=== PATIENT | female | born 2000 | race Caucasian/White ===

== ENCOUNTER 2019-01-07 10:19 | Emergency (ER) | payer MEDICAID, SELFPAY ==
[2019-01-07 10:26] VITALS: BP 149/91; PULSE 76; RESP 14; TEMP 36.7
--- NOTE | 2019-01-07 10:50 | W.ED.GENAD ---
Discharge Plan Disposition Patient Disposition: HOME Condition: Stable Discharge Details Chief Complaint: RashLesion Clinical Impression: Encounter for evaluation of wound Primary Care Provider: Valerie Moncada ED Provider: Shahab Fitch Home Meds and New Rx's Prescriptions: Continued fluticasone propion-salmeterol [Advair Diskus] 250-50 mcg/dose Blister With Device 1 inh INHALATION BID RF: 0 spironolactone 25 mg Tablet 25 mg PO DAILY RF: 0 albuterol sulfate [ProAir HFA] 90 mcg/actuation Hfa Aerosol Inhaler 2 puff INHALATION Q6H PRNRF: 0 cholecalciferol (vitamin D3) [Vitamin D3] 1,000 unit Tablet 1,000 unit PO DAILY RF: 0 Discharge Instructions Instructions: Acute Wound Care (ED) Additional Instructions: Continue to use your topical antibiotic and you may take [id number] ibuprofen 600 mg every 6 hours as needed for pain control. Please return immediately if you notice any redness surrounding the wound, odorous drainage, significant change of your symptoms otherwise follow-up with dermatology for reassessment as needed. Referrals: Valerie Moncada [Primary Care Provider] - (Or elementary supervisor for reassessment as needed) Medical Decision Making Patient presenting to the emergency department for chief complaint of nonhealing wound. Patient states 1 week ago she had a mole removed by dermatology at [facility] and has had continued stinging, burning and itching sensation surrounding the wound with red and raised borders. Evaluation of the wound shows red raised borders of the wound but no odorous or foul drainage, no surrounding erythema, no induration, no obvious signs of cellulitis or wound infection. There are some very small papules that may be a slight dermatitis to adhesive tape so patient was encouraged to use paper tape and also allow the wound to air dry. Patient was informed that she should continue to use the topical antibiotic as prescribed by elementary supervisor but otherwise I do not feel that she needs systemic medication at this time. Clear instructions were given to patient to watch for any emergent changes that would suggest need of different antibiotic and to otherwise follow-up with dermatology or primary care for reassessment or return to ED for worsening of symptoms. After discussion of diagnosis and plan of care patient has no further needs, questions, or concerns and states clear understanding to return to the emergency department for any worsening symptoms. HPI General Mode of arrival: ambulatory. Date/Time Provider Initiated Documentation: 01/07/19 10:50. Limitations to Documentation: no limitations. Information obtained by: patient and RN notes reviewed. History of Present Illness 18 year old F presents to the emergency department with the chief complaint of skin infection ?, described as moderate, with intensity rated at 7. Quality is described as burning (and itching), and is localized to the chest (left lateral chest wall). Patient started experiencing this week(s) (1) and it has been constant. No relieving factors improve symptom(s), Patient did receive the following treatments prior to arrival, other (topical abx) Related Data Home Medications Medication Instructions Recorded Confirmed albuterol sulfate [ProAir HFA] 2 puff INHALATION Q6H PRN 01/07/19 01/07/19 cholecalciferol (vitamin D3) 1,000 unit PO DAILY 01/07/19 01/07/19 [Vitamin D3] fluticasone propion-salmeterol 1 inh INHALATION BID 01/07/19 01/07/19 [Advair Diskus] spironolactone 25 mg PO DAILY 01/07/19 01/07/19 Allergies Allergy/AdvReac Type Severity Reaction Status Date / Time Latex, Natural Rubber Allergy Unverified 01/07/19 10:30 topiramate [From Topamax] Allergy Unverified 01/07/19 10:30 General Stated Complaint: RashLesion VICKI: 3 Review of Systems Constitutional Denies body ache(s), Reports chills and Reports fever(s) Gastrointestinal Denies nausea and Denies vomiting Integumentary/Breasts Reports as per HPI [facility] Social History Smoking/Tobacco Use Status: Never Alcohol Intake: never Drug use: Never Substance use type: does not use Do you feel safe at home: Yes Do you feel safe in your relationship?: Yes Exam Const General: cooperative, no acute distress and not ill appearing Orientation: alert, awake and oriented x3 HENMT Mouth: moist mucous membranes Resp Effort & Inspection: normal respiratory effort, able to speak in complete sentences and no respiratory distress Cardio Rhythm: regular rhythm Skin Wounds: wounds noted (7mm circular wound from mole excision reddened wound borders) Neuro General: alert, awake and oriented x3 Course Vital Signs Temperature 36.7 C 04/17/19 10:26 Pulse 76 01/07/19 10:26 Respiratory Rate 14 01/07/19 10:26 Blood Pressure 149/91 H 01/07/19 10:26 Temperature 36.7 C 01/07/19 10:26 Temperature Source Temporal Artery Scan 01/07/19 10:26 Pulse 76 01/07/19 10:26 Respiratory Rate 14 01/07/19 10:26 Respiratory Effort Non-Labored 01/07/19 10:31 Blood Pressure 149/91 H 01/07/19 10:26 Blood Pressure Position Sitting 01/07/19 10:26 Oxygen Delivery Method Room Air 01/07/19 10:26 Oxygen Flow Rate 0 01/07/19 10:26 Pain Level 8 01/07/19 10:26
--- NOTE | 2019-01-07 10:55 | ED.GENADUL_ITS ---
Discharge Plan Disposition Patient Disposition: HOME Condition: Stable Discharge Details Chief Complaint: RashLesion Clinical Impression: Encounter for evaluation of wound Primary Care Provider: Valerie Moncada ED Provider: Shahab Fitch Home Meds and New Rx's Prescriptions: Continued fluticasone propion-salmeterol [Advair Diskus] 250-50 mcg/dose Blister With Device 1 inh INHALATION BID RF: 0 spironolactone 25 mg Tablet 25 mg PO DAILY RF: 0 albuterol sulfate [ProAir HFA] 90 mcg/actuation Hfa Aerosol Inhaler 2 puff INHALATION Q6H PRNRF: 0 cholecalciferol (vitamin D3) [Vitamin D3] 1,000 unit Tablet 1,000 unit PO DAILY RF: 0 Discharge Instructions Instructions: Acute Wound Care (ED) Additional Instructions: Continue to use your topical antibiotic and you may take [id number] ibuprofen 600 mg every 6 hours as needed for pain control. Please return immediately if you notice any redness surrounding the wound, odorous drainage, significant change of your symptoms otherwise follow-up with dermatology for reassessment as needed. Referrals: Valerie Moncada [Primary Care Provider] - (Or block cuber for reassessment as needed) Medical Decision Making Patient presenting to the emergency department for chief complaint of nonhealing wound. Patient states 1 week ago she had a mole removed by dermatology at [facility] and has had continued stinging, burning and itching sensation surrounding the wound with red and raised borders. Evaluation of the wound shows red raised borders of the wound but no odorous or foul drainage, no surrounding erythema, no induration, no obvious signs of cellulitis or wound infection. There are some very small papules that may be a slight dermatitis to adhesive tape so patient was encouraged to use paper tape and also allow the wound to air dry. Patient was informed that she should continue to use the topical antibiotic as prescribed by block cuber but otherwise I do not feel that she needs systemic medication at this time. Clear instructions were given to patient to watch for any emergent changes that would suggest need of different antibiotic and to otherwise follow-up with dermatology or primary care for reassessment or return to ED for worsening of symptoms. After discussion of diagnosis and plan of care patient has no further needs, questions, or concerns and states clear understanding to return to the emergency department for any worsening symptoms. HPI General Mode of arrival: ambulatory . Date/Time Provider Initiated Documentation: 01/07/19 10:50 . Limitations to Documentation: no limitations . Information obtained by: patient and RN notes reviewed . History of Present Illness 18 year old F presents to the emergency department with the chief complaint of skin infection ?, described as moderate, with intensity rated at 7. Quality is described as burning (and itching), and is localized to the chest (left lateral chest wall). Patient started experiencing this week(s) (1) and it has been constant. No relieving factors improve symptom(s), Patient did receive the following treatments prior to arrival, other (topical abx) Related Data Home Medications Medication Instructions Recorded Confirmed albuterol sulfate [ProAir HFA] 2 puff INHALATION Q6H PRN 01/07/19 01/07/19 cholecalciferol (vitamin D3) 1,000 unit PO DAILY 01/07/19 01/07/19 [Vitamin D3] fluticasone propion-salmeterol 1 inh INHALATION BID 01/07/19 01/07/19 [Advair Diskus] spironolactone 25 mg PO DAILY 01/07/19 01/07/19 Allergies Allergy/AdvReac Type Severity Reaction Status Date / Time Latex, Natural Rubber Allergy Unverified 01/07/19 10:30 topiramate [From Topamax] Allergy Unverified 01/07/19 10:30 General Stated Complaint: RashLesion VICKI: 3 Review of Systems Constitutional Denies body ache(s), Reports chills and Reports fever(s) Gastrointestinal Denies nausea and Denies vomiting Integumentary/Breasts Reports as per HPI [facility] Social History Smoking/Tobacco Use Status: Never Alcohol Intake: never Drug use: Never Substance use type: does not use Do you feel safe at home: Yes Do you feel safe in your relationship?: Yes Exam Const General: cooperative, no acute distress and not ill appearing Orientation: alert, awake and oriented x3 HENMT Mouth: moist mucous membranes Resp Effort & Inspection: normal respiratory effort, able to speak in complete sentences and no respiratory distress Cardio Rhythm: regular rhythm Skin Wounds: wounds noted (7mm circular wound from mole excision reddened wound borders) Neuro General: alert, awake and oriented x3 Course Vital Signs Temperature 36.7 C 04/17/19 10:26 Pulse 76 01/07/19 10:26 Respiratory Rate 14 01/07/19 10:26 Blood Pressure 149/91 H 01/07/19 10:26 Temperature 36.7 C 01/07/19 10:26 Temperature Source Temporal Artery Scan 01/07/19 10:26 Pulse 76 01/07/19 10:26 Respiratory Rate 14 01/07/19 10:26 Respiratory Effort Non-Labored 01/07/19 10:31 Blood Pressure 149/91 H 01/07/19 10:26 Blood Pressure Position Sitting 01/07/19 10:26 Oxygen Delivery Method Room Air 01/07/19 10:26 Oxygen Flow Rate 0 01/07/19 10:26 Pain Level 8 01/07/19 10:26
[2019-01-07] MEDS: Ibuprofen 600 MG TAB PO (11:02)
[2019-01-07 19:02] VITALS: BP 149/91; PULSE 76; RESP 14; TEMP 36.7
== END 2019-01-07 11:05 | disposition home or self-care (01) ==
PROVIDERS: Emergency Provider Nurse Practitioner Family; PCP Nurse Practitioner
DX: L30.9 Dermatitis, unspecified (principal)
CPT/HCPCS: 99282

== ENCOUNTER 2020-05-29 18:55 | Emergency (ER) | payer MEDICAID, SELFPAY ==
--- NOTE | 2020-05-29 19:00 | DI.RAD_ITS ---
EXAM: XR HAND RT COMPLETE CLINICAL HISTORY: trauma. TECHNIQUE: 2D digital imaging was performed. COMPARISON: No exams were available for comparison FINDINGS: BONES: No acute fracture is present. No bony destructive lesion is seen. JOINTS: No dislocation present. SOFT TISSUE: Normal. IMPRESSION: Unremarkable radiographs of the right hand. DATA REPOSITORY: RADIATION DOSE DELIVERED:
[2020-05-29 19:02] VITALS: BP 148/95; PULSE 76; RESP 16; TEMP 36.6; O2SAT 96
--- NOTE | 2020-05-29 19:42 | ED.GENADUL_ITS ---
Discharge Plan Disposition Patient Disposition: HOME Condition: Stable Discharge Details Clinical Impression: Contusion of hand Primary Care Provider: Valerie Moncada ED Provider: Elham Calero Home Meds and New Rx's Prescriptions: Continued fluticasone propion-salmeterol [Advair Diskus] 250-50 mcg/dose Blister With Device 1 inh INHALATION BID RF: 0 spironolactone 25 mg Tablet 25 mg PO DAILY RF: 0 albuterol sulfate [ProAir HFA] 90 mcg/actuation Hfa Aerosol Inhaler 2 puff INHALATION Q6H PRNRF: 0 cholecalciferol (vitamin D3) [Vitamin D3] 1,000 unit Tablet 1,000 unit PO DAILY RF: 0 Discharge Instructions Instructions: Contusion in Adults (ED) Additional Instructions: Rest, ice, and elevate the affected area as much as possible. Alternate tylenol and motrin as needed and directed for pain. Follow up with your primary care doctor in 1 week as needed. Return to the emergency department with any worsening or new concerning symptoms. Discharge Data Discharge Date/Time-TO BE ENTERED AT DEPARTURE: 05/29/20 21:15 Discharge Physician: Elham Calero Medical Decision Making <Richard Berumen MD - Last Filed: 06/18/20 20:56> 19yo f here with injury to right 2nd and 3rd distal MCs and MCP. Distal motor and sensation intact. Xray of the right hand to assess for fracture. <Elham Calero DO - Last Filed: 05/29/20 20:59> 1999 --please see Dr. Richard Berumen's note for initial presentation, exam and plan. Case endorsed to follow-up on hand x-ray. And x-ray reviewed and negative. Patient given Shyam wrap for comfort and compression. Advised on the importance of RICE. Advised to follow up with the primary care doctor for re-evaluation. Usual and customary return precautions given prior to discharge. Medical Records Medical records reviewed: Yes I reviewed the patient's medical records. Imaging Data Radiologic Study: Radiologist's impression: XR Right Hand Exam date and time: 05/29/2020 7:54 PM Age: 19 years old Clinical indication: Injury or trauma; Injury history: Crushed hand in door. ; Initial encounter; Abrasion; Right thumb and right index finger and right middle finger and right ring finger and right little finger; Injury date: 05/29/2020 TECHNIQUE: Imaging protocol: XR Right hand. Views: 3 or more views. COMPARISON: No relevant prior studies available. FINDINGS: Bones/joints: Unremarkable. Soft tissues: Unremarkable. IMPRESSION: No evidence for acute bony injury. If clinical symptoms persist recommend followup film in 7-10 days. HPI <Richard Berumen MD - Last Filed: 06/18/20 20:56> General Mode of arrival: ambulatory . Date/Time Provider Initiated Documentation: 05/29/20 19:11 . Limitations to Documentation: no limitations . Information obtained by: patient . HPI Narrative: 19-year-old female presents with chief complaint of right hand pain. Patient notes she accidentally slammed her right hand in car door around 3 PM today. She is had pain since the accident. Pain is localized to her right second and third MCPs. No associated tingling or numbness. No wrist pain. Patient did not sustain laceration. Pain is worse on palpation. Related Data Home Medications Medication Instructions Recorded Confirmed albuterol sulfate [ProAir HFA] 2 puff INHALATION Q6H PRN 01/07/19 05/29/20 cholecalciferol (vitamin D3) 1,000 unit PO DAILY 01/07/19 05/29/20 [Vitamin D3] fluticasone propion-salmeterol 1 inh INHALATION BID 01/07/19 05/29/20 [Advair Diskus] spironolactone 25 mg PO DAILY 01/07/19 01/07/19 Allergies Allergy/AdvReac Type Severity Reaction Status Date / Time Latex, Natural Rubber Allergy Unverified 05/29/20 19:06 topiramate [From Topamax] Allergy Unverified 05/29/20 19:06 General Stated Complaint: Orthopedic VICKI: 4 Review of Systems <Richard Berumen MD - Last Filed: 06/18/20 20:56> Musculoskeletal Musculoskeletal: Reports as per HPI Integumentary/Breasts Skin/Breast: Reports as per HPI Neurologic Neurologic: Reports as per HPI PFSH <Richard Berumen MD - Last Filed: 06/18/20 20:56> Social History Smoking/Tobacco Use Status: Never Alcohol Intake: never Drug use: Never Substance use type: does not use Do you feel safe at home: Yes Do you feel safe in your relationship?: Yes Exam <Richard Berumen MD - Last Filed: 06/18/20 20:56> Const General: cooperative and healthy appearing Neuro Other: Distal motor and sensation intact all digits right hand Extrem Right upper extremity: wrist Details: no tenderness and hand Details: tenderness Location: of the 2nd digit Location: at the MCP joint and of the 3rd digit Location: at the MCP joint; no lacerations Course <Richard Berumen MD - Last Filed: 06/18/20 20:56> Vital Signs Vital signs: Vital Signs Temperature 36.6 C 05/29/20 19:02 Pulse 76 05/29/20 19:02 Respiratory Rate 16 05/29/20 19:02 Blood Pressure 148/95 H 05/29/20 19:02 Pulse Oximetry 96 05/29/20 19:02 Temperature 36.6 C 05/29/20 19:02 Temperature Source Tympanic 05/29/20 19:02 Pulse 76 05/29/20 19:02 Respiratory Rate 16 05/29/20 19:02 Respiratory Effort Non-Labored 05/29/20 19:04 Blood Pressure 148/95 H 05/29/20 19:02 Blood Pressure Position Sitting 05/29/20 19:02 Pulse Oximetry 96 05/29/20 19:02 Oxygen Delivery Method Room Air 05/29/20 19:02 Oxygen Flow Rate 0 05/29/20 19:02 Pain Level 9 05/29/20 19:04
[2020-05-29] MEDS: Acetaminophen 325 MG TAB 650 MG PO (19:50)
--- NOTE | 2020-05-29 20:19 | DI.VRAD_ITS ---
PROCEDURE INFORMATION: Exam: XR Right Hand Exam date and time: 05/29/2020 7:54 PM Age: 19 years old Clinical indication: Injury or trauma; Injury history: Crushed hand in door. ; Initial encounter; Abrasion; Right thumb and right index finger and right middle finger and right ring finger and right little finger; Injury date: 05/29/2020 TECHNIQUE: Imaging protocol: XR Right hand. Views: 3 or more views. COMPARISON: No relevant prior studies available. FINDINGS: Bones/joints: Unremarkable. Soft tissues: Unremarkable. IMPRESSION: No evidence for acute bony injury. If clinical symptoms persist recommend followup film in 7-10 days. Dictated and Authenticated by: Allie Zaragoza MD. Ordering:BETSY Ramos MD
[2020-05-29 21:15] VITALS: BP 148/95; PULSE 76; RESP 16; TEMP 36.6; O2SAT 96
== END 2020-05-29 21:15 | disposition home or self-care (01) ==
PROVIDERS: Emergency Provider Physician Assistant; PCP Nurse Practitioner
DX: S67.21XA Crushing injury of right hand, initial encounter (principal); S60.221A Contusion of right hand, initial encounter; W23.1XXA Caught, crushed, jammed, or pinched between stationary objects, initial encounter
CPT/HCPCS: 99283; 73130

== ENCOUNTER 2020-11-02 15:17 | Emergency (ER) | payer MEDICAID, SELFPAY ==
[2020-11-02 15:20] VITALS: BP 132/96; PULSE 94; RESP 18; TEMP 36.4; O2SAT 95
--- NOTE | 2020-11-02 15:26 | W.ED.GENAD ---
Discharge Plan Disposition Patient Disposition: HOME Condition: Stable Discharge Details Clinical Impression: Foreign body sensation in throat, Sore throat Primary Care Provider: Valerie Moncada ED Provider: Elham Calero Home Meds and New Rx's Prescriptions: Continued albuterol sulfate [ProAir HFA] 90 mcg/actuation Hfa Aerosol Inhaler 2 puff INHALATION Q6H PRNRF: 0 cholecalciferol (vitamin D3) [Vitamin D3] 1,000 unit Tablet 1,000 unit PO DAILY RF: 0 norgestimate-ethinyl estradiol [Previfem] 0.25-35 mg-mcg tablet RF: 0 Discharge Instructions Instructions: Pharyngitis (ED) Additional Instructions: Drink plenty of fluids and get plenty of rest. Gargle with warm water mixed with salt and also warm water mixed with 1-2 capfuls of hydrogen peroxide several times daily over the next few days. Follow-up with your primary care doctor in 1 week and for referral to ENT if your symptoms do not improve or worsen for consideration for laryngoscopy to further evaluate the back of your throat and neck. Return to the emergency department with any worsening or new concerning symptoms. Referrals: Tal Clark MD [ [facility] STAFF PHYSICIAN] - Discharge Data Discharge Physician: Elham Calero Medical Decision Making 20-year-old female presents with sensation of foreign body in throat for the past 2 days. She admits to some discomfort but denies any difficulty swallowing liquids or solids. She is afebrile and appears nontoxic. She is speaking in full sentences. There is no drooling, trismus, submandibular swelling or lymphadenopathy. Normal oropharynx. History and presentation not consistent with peritonsillar abscess, mononucleosis, strep pharyngitis. Will obtain a rapid strep. Differential diagnosis includes viral pharyngitis, tonsil stone, allergies, polyp, etc. Rapid strep negative. As she appears nontoxic and speaking in full sentences, do not feel indication for lab work or imaging. Patient advised to continue salt water gargles and warm water with hydrogen peroxide. HPI General Mode of arrival: ambulatory. Date/Time Provider Initiated Documentation: 11/02/20 15:18. Limitations to Documentation: no limitations. Information obtained by: patient. HPI Narrative: Patient is a 20-year-old female who presents with foreign body sensation and discomfort in throat and neck for the past 2 days. Patient denies any significant pain and states she thought it was likely a tonsil stone which she usually resolves with salt water gargles but this not helped. Patient states she feels that the sensation is further down her throat and she cannot see it. She states she is able to drink and eat but has been mainly following a diet of soft foods and not irritated. She denies any fever, neck pain, vomiting, headache. Related Data Home Medications Medication Instructions Recorded Confirmed albuterol sulfate [ProAir HFA] 2 puff INHALATION Q6H PRN 01/07/19 05/29/20 cholecalciferol (vitamin D3) 1,000 unit PO DAILY 01/07/19 11/02/20 [Vitamin D3] norgestimate-ethinyl estradiol tab 11/02/20 11/02/20 [Previfem] Allergies Allergy/AdvReac Type Severity Reaction Status Date / Time Latex, Natural Rubber Allergy Unverified 11/02/20 15:26 topiramate [From Topamax] Allergy Unverified 11/02/20 15:26 General Stated Complaint: ThroatFB VICKI: 3 Review of Systems All systems reviewed & are unremarkable except as noted in HPI and below Constitutional Constitutional: Reports as per HPI, Denies chills and Denies fever(s) Eyes Eyes: Denies blurry vision ENT Ears, Nose, Mouth, and Throat: Denies dizziness, Reports odynophagia, Reports sore throat and Denies throat swelling Cardiovascular Cardiovascular: Denies chest pain and Denies dyspnea Respiratory Respiratory: Denies cough and Denies dyspnea Gastrointestinal Gastrointestinal: Denies abdominal pain, Denies diarrhea, Reports odynophagia and Denies vomiting Genitourinary Genitourinary: Denies hematuria and Denies dysuria Musculoskeletal Musculoskeletal: Denies back pain and Denies numbness Integumentary/Breasts Skin/Breast: Denies lesions and Denies rash Neurologic Neurologic: Denies dizziness, Denies localized weakness and Denies numbness Allergic/Immunologic Allergic/Immunologic: Denies throat swelling [facility] Medical History (Updated 11/02/20 @ 15:55 by Elham Calero DO) No significant past medical history Surgical History (Updated 11/02/20 @ 15:44 by Elham Calero DO) No significant past surgical history Social History Smoking/Tobacco Use Status: Never Smoking risk assessment performed?: Yes Alcohol Intake: never Drug use: Never Substance use type: does not use Do you feel safe at home: Yes Do you feel safe in your relationship?: Yes Exam Const General: cooperative, healthy appearing and no acute distress HENMT Head: normal to inspection Ears: hearing grossly normal bilaterally, external ears normal and TM's normal bilaterally General nose exam: external nose normal Mouth: oral mucosae normal Teeth and gingiva: dentition normal Throat: posterior oropharynx normal Eyes General: appearance normal, both eyes and all related structures Neck Neck: normal visual inspection, no lymphadenopathy, no meningeal signs and trachea midline Resp Effort & Inspection: normal respiratory effort and able to speak in complete sentences Cardio Rate: regular rate Skin General skin exam: no rashes or lesions noted Neuro General: patient alert, patient awake and patient oriented x3 Motor: muscle tone normal throughout Extrem General: normal to inspection and full ROM Psych Appearance: grossly normal Affect: normal affect Course Vital Signs Vital signs: Vital Signs Temperature 97.5 F L 11/02/20 15:20 Pulse 94 H 11/02/20 15:20 Respiratory Rate 18 11/02/20 15:20 Blood Pressure 132/96 H 11/02/20 15:20 Pulse Oximetry 95 11/02/20 15:20 Temperature 97.5 F L 11/02/20 15:20 Temperature Source Temporal Artery Scan 11/02/20 15:20 Pulse 94 H 11/02/20 15:20 Respiratory Rate 18 11/02/20 15:20 Blood Pressure 132/96 H 11/02/20 15:20 Blood Pressure Position Sitting 11/02/20 15:20 Pulse Oximetry 95 11/02/20 15:20 Oxygen Delivery Method Room Air 11/02/20 15:20 Oxygen Flow Rate 0 11/02/20 15:20
--- NOTE | 2020-11-02 17:37 | NUR.NOTE ---
Nursing Note: Referral faxed to ENT [facility] for follow up 1 to 2 weeks for foreign body sensation throat. Ambar Laird
== END 2020-11-02 16:22 | disposition home or self-care (01) ==
PROVIDERS: Emergency Provider Physician Assistant; PCP Nurse Practitioner
DX: R09.89 Other specified symptoms and signs involving the circulatory and respiratory systems (principal); J02.8 Acute pharyngitis due to other specified organisms
CPT/HCPCS: 87880; 99282; 87081; 99283

== ENCOUNTER 2021-05-08 21:19 | Emergency (ER) | payer MEDICAID, SELFPAY ==
[2021-05-08 21:22] VITALS: BP 133/89; PULSE 89; RESP 18; TEMP 36.9; O2SAT 98
[2021-05-08 21:33] VITALS: RESP 18
--- NOTE | 2021-05-08 21:45 | RT.EKG_ITS ---
APPROVED REPORT Exam: Resting ECG Reason for Exam: left arm pain Patient Location: E HR:93 bpm ECG Measurements Heart Rate 93 AXIS WA 141 P 42 QRSd 96 QRS 17 QT 365 T 8 QTc 455 Conclusion Sinus rhythm...normal P axis, V-rate 60- 99. No STEMI. I have reviewed and interpreted ECG and agree with software generated interpretation.
[2021-05-08] MEDS: Acetaminophen 325 MG TAB 650 MG PO (21:51)
[2021-05-08] MEDS: Ibuprofen 600 MG TAB PO (21:51)
[2021-05-08 22:03] LABS: Abs Immature Grans 0.02 10^3/uL (0.0-0.06); Absolute Basophil Count 0.04 10^3/uL (0.0-0.2); Absolute Eosinophil Count 0.17 10^3/uL (0.0-0.7); Absolute Lymphocyte Count 3.15 10^3/uL (1.2-3.4); Absolute Monocyte Count 0.83 10^3/uL (0.1-0.8); Absolute Neutrophil Count 5.54 10^3/uL (1.2-6.7); Basophils % 0.4; Eosinophils % 1.7; HCT 38.4 % (36.0-46.0); HGB 12.4 g/dL (11.2-15.7); Immature Grans % 0.2; Lymphocytes % 32.3; MCH 29.2 pg (27.0-33.0); MCHC 32.3 % (32.0-36.0); MCV 90.4 fL (80-95); MPV 10.6 fL (8.0-11.0); Monocytes % 8.5; Neutrophils % 56.9; Nucleated RBC 0 %; Platelet Count 270 10^3/uL (130-400); RBC 4.25 10^6/uL (3.93-5.22); RDW 12.3 % (11.7-14.6); RDW-SD 40.4 fL; WBC 9.75 10^3/uL (4.4-10.8)
[2021-05-08 22:28] LABS: ALT 29 U/L (14-59); AST 16 U/L (15-37); Albumin 3.4 g/dL (3.4-5.0); Alkaline Phosphatase 61 U/L (46-116); Anion Gap 8.9 mmol/L (3-11); BUN 13 mg/dL (7-18); Bilirubin, Total 0.2 mg/dL (0.2-1.0); CO2 27.1 mmol/L (21.0-32.0); CREATININE 0.8 mg/dL (0.55-1.02); Calcium 8.7 mg/dL (8.5-10.1); Chloride 105 mmol/L (98-107); Glucose 91 mg/dL (74-106); Magnesium 1.8 mg/dL (1.8-2.4); Potassium 3.6 mmol/L (3.5-5.1); Sodium 141 mmol/L (136-145); Total Protein 7.4 g/dL (6.4-8.2)
--- NOTE | 2021-05-08 23:00 | ED.GENADUL_ITS ---
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 Please continue with Tylenol and ibuprofen to help with discomfort and swelling. Please encourage rest, ice, elevation. Please follow-up with primary care in 1 week for reevaluation. If you develop chest pain, shortness of breath, fever/chills, neck pain or other new/worsening symptoms please seek care urgently once again. Referrals: Valerie Moncada [Primary Care Provider] - Discharge Data Discharge Date/Time-TO BE ENTERED AT DEPARTURE: 05/08/21 23:14 Medical Decision Making Mihaela is a pleasant RHD 20 year old female presenting today with c/c of r adiating left arm pain. Indicates medial upper arm and radial aspect of forearm and hand. States that this began this AM. Insidious onset. Denies injury. 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 She reports that 2 days ago, she was dehydrated and experienced overall muscle spasms/discomfort. No fevers/chills. Has not had pain like this historically. She has not taken anything for her discomfort. On exam, patient appears nontoxic. She ahs 2+ distal pulses. Full ROM of shoulder, elbow, wrist, hand. Neurovascularly intact. Pain worse with flexion of the elbow as well as percussion over the radial nerve. Patients exam is most consistent with radial nerve pain, likely associated with entrapmentat the elbow based on exam. However, as she had more systemic symptoms recently, will obtain baseline labs. As she has left arm pain, will obtain ECG. She denies CP so do not see evidence to suggest ACS. No palpitations. concerned more for possible electrolyte abnoramlity. Patient given tylenol and ibuprofen for discomfort. UPT negative. ECG reviewed by Dr. Calero. Patient in NSR with no acute abnromalitites noted. Labs reviewed, no sigfnicant abnormality. Discussed findigns with the patient. I do not see emergent pathology at this time. I encouraged RICE. Encouraged NSAID as I believe swelling/irritation of the radial nervis is likely causing her symptoms. Encouraged close f/u wtih PCP. RErturn precautions discussed. All of her quesitons and cocnerns were addressed, she is in agreement wit this plan. HPI General Mode of arrival: ambulatory . Date/Time Provider Initiated Documentation: 05/08/21 21:23 . Limitations to Documentation: no limitations . Information obtained by: patient and RN notes reviewed . History of Present Illness 20 year old F presents to the emergency department with the chief complaint of left arm pain, described as moderate, with intensity rated at 7. Quality is described as aching, and is localized to the left and upper extremity. Patient extremity. Patient started experiencing this hour(s) and it has been intermittent. Immobilization improves symptom(s), Movement worsens symptoms . Patient notes no other symptoms.. Patient did receive the following treatments prior to arrival, none Related Data Home Medications Medication Instructions Recorded Confirmed albuterol sulfate [ProAir HFA] 2 puff INHALATION Q6H PRN 01/07/19 05/08/21 cholecalciferol (vitamin D3) 1,000 unit PO DAILY 01/07/19 05/08/21 [Vitamin D3] Allergies Allergy/AdvReac Type Severity Reaction Status Date / Time Latex, Natural Rubber Allergy Verified 11/17/20 14:01 femi Allergy Unverified 05/08/21 21:28 pineapple Allergy Unverified 05/08/21 21:29 strawberry Allergy Unverified 05/08/21 21:28 topiramate [From Topamax] Allergy Verified 11/17/20 14:01 General Stated Complaint: GenMedical VICKI: 4 Review of Systems Constitutional Constitutional: Reports as per HPI, Denies chills, Denies fever(s), Denies headache(s) and Denies weakness ENT Ears, Nose, Mouth, and Throat: Denies headache(s) Cardiovascular Cardiovascular: Reports as per HPI and Reports dyspnea (reports chronic and unchanged, states she has hx of asthma so this is stefan) Respiratory Respiratory: Reports as per HPI and Reports dyspnea (reports chronic and unchanged, states she has hx of asthma so this is stefan) Musculoskeletal Musculoskeletal: Reports as per HPI and Reports tingling Integumentary/Breasts Skin/Breast: Reports as per HPI, Denies rash and Denies wounds Neurologic Neurologic: Reports as per HPI, Denies headache(s), Reports tingling, Reports paresthesias and Denies weakness [facility] Medical History No significant past medical history Surgical History No significant past surgical history Social History Smoking/Tobacco Use Status: Never Smoking risk assessment performed?: Yes Alcohol Intake: never Drug use: Never Substance use type: does not use Do you feel safe at home: Yes Do you feel safe in your relationship?: Yes Exam Const General: cooperative, healthy appearing, comfortable, no acute distress, well developed and well groomed Nutritional Appearance: well nourished and overweight Orientation: alert and awake Neck Neck: normal visual inspection and full ROM Resp Effort & Inspection: normal respiratory effort, able to speak in complete sentences and no respiratory distress Auscultation: clear to auscultation bilaterally Cardio Rate: regular rate Rhythm: regular rhythm Heart Sounds: S1 normal and S2 normal Skin General skin exam: no rashes or lesions noted Lesions: no lesions Rashes: no rashes Trauma: no lacerations or abrasions Neuro General: patient alert and patient awake Cognition: normal cognition Speech: speech normal Gait: normal gait Motor: muscle tone normal throughout Sensory Exam: no sensory deficits noted Extrem Shoulder/upper arm images: 1. Area of discomfort, extending into the radial side of the forearm and hand. 2+ distal pulses. Full ROM of shoulder, elbow, wrist, hand. Pain maximized with flexion of the elbow and percussion over the radial nerve. She is able to extend wrist against resistance. Abduct fingers against resistance. 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 No rash, deformity, erythema. Psych Appearance: grossly normal and well kempt Mental Status: mental status grossly normal Speech and Movement: speech and movement normal Course Vital Signs Vital signs: Vital Signs Temperature 36.9 C 05/08/21 21:22 Pulse 89 05/08/21 21:22 Respiratory Rate 18 05/08/21 21:22 Blood Pressure 133/89 08/16/21 21:22 Pulse Oximetry 98 05/08/21 21:22 Temperature 36.9 C 05/08/21 21:22 Temperature Source Temporal Artery Scan 05/08/21 21:22 Pulse 89 05/08/21 21:22 Respiratory Rate 18 05/08/21 21:33 Respiratory Effort Non-Labored 05/08/21 21:33 Respiratory Depth Normal 05/08/21 21:33 Respiratory Pattern Normal 05/08/21 21:33 Blood Pressure 133/89 05/08/21 21:22 Blood Pressure Position Sitting 05/08/21 21:22 Pulse Oximetry 98 05/08/21 21:22 Oxygen Delivery Method Room Air 05/08/21 21:22 Oxygen Flow Rate 0 05/08/21 21:22 Pain Level 7 05/08/21 21:51 Lab/Test Results Lab/Test Results: Laboratory Tests Range/Units 05/08/21 05/08/21 21:56 21:56 WBC (4.4-10.8) 10^3/uL 9.75 RBC (3.93-5.22) 10^6/uL 4.25 Hgb (11.2-15.7) g/dL 12.4 Hct (36.0-46.0) % 38.4 MCV (80-95) fL 90.4 MCH (27.0-33.0) pg 29.2 MCHC (32.0-36.0) % 32.3 RDW (11.7-14.6) % 12.3 Plt Count (130-400) 10^3/uL 270 MPV (8.0-11.0) fL 10.6 Immature Gran % 0.2 Neutrophils % 56.9 Lymphocytes % 32.3 Monocytes % 8.5 Eosinophils % 1.7 Basophils % 0.4 Nucleated RBC % % 0 Absolute Neutrophils (1.2-6.7) 10^3/uL 5.54 Absolute Lymphocytes (1.2-3.4) 10^3/uL 3.15 Absolute Monocytes (0.1-0.8) 10^3/uL 0.83 H Absolute Eosinophils (0.0-0.7) 10^3/uL 0.17 Absolute Basophils (0.0-0.2) 10^3/uL 0.04 Sodium (136-145) mmol/L 141 Potassium (3.5-5.1) mmol/L 3.6 Chloride (98-107) mmol/L 105 Carbon Dioxide (21.0-32.0) mmol/L 27.1 Anion Gap (3-11) mmol/L 8.9 BUN (7-18) mg/dL 13 Creatinine (0.55-1.02) mg/dL 0.8 Estimated GFR/1.73 m2 (mL/min/1.73m2) >= 60.00 Glucose (74-106) mg/dL 91 Calcium (8.5-10.1) mg/dL 8.7 Magnesium (1.8-2.4) mg/dL 1.8 Total Bilirubin (0.2-1.0) mg/dL 0.2 AST (15-37) U/L 16 ALT (14-59) U/L 29 Alkaline Phosphatase (46-116) U/L 61 Total Protein (6.4-8.2) g/dL 7.4 Albumin (3.4-5.0) g/dL 3.4 POC- Test(urine) Negative
[2021-05-08 23:14] VITALS: BP 107/65; PULSE 88; RESP 18; TEMP 36.5; O2SAT 100
== END 2021-05-08 23:14 | disposition home or self-care (01) ==
PROVIDERS: Emergency Provider Physician Assistant; PCP Nurse Practitioner
DX: G56.82 Other specified mononeuropathies of left upper limb (principal)
CPT/HCPCS: 36415; 80053; 81025; 93005; 99283; 83735; 85025; 93010